=== PATIENT | female | born 1980 | race Caucasian/White ===

== ENCOUNTER 2017-09-17 06:24 | Emergency (ER) | payer MEDICAID ==
[2017-09-17] MEDS ORDERED: LORAZEPAM 2 MG/ML VIAL IV ONE (06:43)
--- NOTE | 2017-09-17 06:51 | Emergency Department Record ---
History of Present Illness - General Chief Complaint: Dizziness Stated Complaint: DIZZINESS Time Seen by Provider: 09/17/17 06:31 Source: Patient Mode of Arrival: Ambulatory Limitations: No limitations - History of Present Illness Initial Comments: The patient is here due to an episode of vague L sided chest discomfort described as tightness that occurred at 4:45 am while on the way to work. She also developed lightheadedness, weakness, SOB, and did vomit once. The symptoms lasted 15-20 minutes then did resolve. The issues did return about 20 minutes ago with the addition of spots in front of her eyes so the patient decided to come over from work at [employer] to be evaluated. She additionally has been very anxious recently. The patient states she was just started on a new BP medicine last week. The patient also states she has missed her menses for the last 4 months but did just start it today. MD Complaint: Dizziness Onset/Timin -: Hour(s) Timing: Sudden onset Description: Difficulty walking, Lightheadedness, Nausea Associated Symptoms: Denies other symptoms - [place] Coma Scale Eye Response: (4) Open spontaneously Motor Response: (6) Obeys commands Verbal Response: (5) Oriented [place] Total: 15 - Related Data Allergies Allergy/AdvReac Type Severity Reaction Status Date / Time ssri antidepressants Allergy Intermediate ALTERED Uncoded 11/29/15 11:51 MENTAL STATUS Travel Screening - Travel/Exposure Within Last 30 Days Have you traveled within the last 30 days?: No - Travel/Exposure Within Last Year Have you traveled outside the [place] in the last year?: No - Additonal Travel Details Have you been exposed to anyone with a communicable illness?: No - Travel Symptoms Symptom Screening: None Review of Systems Constitutional: Denies: Chills, Fever Eyes: Denies: Eye discharge ENT: Denies: Congestion Respiratory: Denies: Cough, Dyspnea Past Medical History - SOCIAL HISTORY Smoking Status: Current every day smoker Alcohol Use: Occasional Drug Use: None - RESPIRATORY Hx Respiratory Disorders: No - CARDIOVASCULAR Hx Cardio Disorders: No - NEURO Hx Neuro Disorders: No - GI Hx GI Disorders: No - Hx Genitourinary Disorders: Yes Hx Kidney Stones: Yes (hx) - ENDOCRINE Hx Endocrine Disorders: No - MUSCULOSKELETAL Hx Musculoskeletal Disorders: No - PSYCH Hx Psych Problems: Yes Hx Depression: Yes - HEMATOLOGY/ONCOLOGY Hx Hematology/Oncology Disorders: No Family Medical History Any Significant Family History?: Yes Hx Cancer: Father Physical Exam - General General Appearance: Alert, Oriented x3, Cooperative, No acute distress - Head Head exam: Atraumatic, Normocephalic, Normal inspection - Eye Eye exam: Normal appearance, PERRL, EOMI - ENT Throat exam: Normal inspection. negative: Tonsillar erythema, Tonsillar exudate - Neck Neck exam: Normal inspection, Full ROM. negative: Tenderness - Respiratory Respiratory exam: Normal lung sounds bilaterally. negative: Respiratory distress - Cardiovascular Cardiovascular Exam: Regular rate, Normal rhythm, Normal heart sounds - GI/Abdominal GI/Abdominal exam: Soft, Normal bowel sounds. negative: Tenderness - Extremities Extremities exam: Normal inspection, Full ROM, Normal capillary refill. negative: Tenderness - Neurological Neurological exam: Alert, Normal gait, Oriented X3. negative: Abnormal gait, Motor sensory deficit - Psychiatric Psychiatric exam: negative: Anxious Course Vital Signs 09/17/17 06:29 Temperature 97.8 F Pulse Rate [ 97 H Pulse Ox Probe] Respiratory 24 Rate Blood Pressure 154/107 [Left Arm] Pulse Ox 98 - Reevaluation(s) Reevaluation #1: The patient's care will be turned over to Dr. Wen at 7am due to shift change. 09/17/17 06:49 Medical Decision Making - Lab Data Result diagrams: 09/17/17 06:42 09/17/17 06:42 Disposition Quality - Quality Measures Quality Measures: N/A - Blood Pressure Screening View Details: Yes Does Patient Have Any of the Following: Active Dx of HTN Blood Pressure Classification: Hypertensive Reading Systolic Measurement: 154 Diastolic Measurement: 107 Screening for High Blood Pressure: Patient Exclusion, Hx of HTN [G9744]
[2017-09-17 06:58] LABS: BASO % 0.4 % (0-6); EOS % 0.6 % (0-6); HEMOGLOBIN 13.1 gm/dl (11.6-16.0); LYMPH % 16.2 % (16-45); MEAN CELL VOLUME 98.8 fl (81-97); MEAN CORPUSCULAR HEMOGLOBIN 31.6 pg (27-33); MEAN PLATELET VOLUME 8.9 fl (7.4-10.4); MONO % 6.8 % (0-9); PLATELET COUNT 298 K/uL (130-400); RED BLOOD COUNT 4.15 M/uL (3.80-5.40); RED CELL DISTRIBUTION WIDTH 16.4 % (11.5-14.5); WHITE BLOOD COUNT W/O DIFF 10.4 K/uL (4.2-12.2)
--- NOTE | 2017-09-17 07:02 | Emergency Department Record ---
History of Present Illness - General Chief Complaint: Dizziness Stated Complaint: DIZZINESS Time Seen by Provider: 09/17/17 06:31 Source: Patient Mode of Arrival: Ambulatory Limitations: No limitations - History of Present Illness Onset/Timin -: Hour(s) Timing: Sudden onset Description: Difficulty walking, Lightheadedness, Nausea Associated Symptoms: Denies other symptoms - [place] Coma Scale Eye Response: (4) Open spontaneously Motor Response: (6) Obeys commands Verbal Response: (5) Oriented [place] Total: 15 - Related Data Allergies Allergy/AdvReac Type Severity Reaction Status Date / Time ssri antidepressants Allergy Intermediate ALTERED Uncoded 11/29/15 11:51 MENTAL STATUS Travel Screening - Travel/Exposure Within Last 30 Days Have you traveled within the last 30 days?: No - Travel/Exposure Within Last Year Have you traveled outside the [place] in the last year?: No - Additonal Travel Details Have you been exposed to anyone with a communicable illness?: No - Travel Symptoms Symptom Screening: None Review of Systems Constitutional: Denies: Chills, Fever Eyes: Denies: Eye discharge ENT: Denies: Congestion Respiratory: Denies: Cough, Dyspnea Past Medical History - SOCIAL HISTORY Smoking Status: Current every day smoker Alcohol Use: Occasional Drug Use: None - RESPIRATORY Hx Respiratory Disorders: No - CARDIOVASCULAR Hx Cardio Disorders: No - NEURO Hx Neuro Disorders: No - GI Hx GI Disorders: No - Hx Genitourinary Disorders: Yes Hx Kidney Stones: Yes (hx) - ENDOCRINE Hx Endocrine Disorders: No - MUSCULOSKELETAL Hx Musculoskeletal Disorders: No - PSYCH Hx Psych Problems: Yes Hx Depression: Yes - HEMATOLOGY/ONCOLOGY Hx Hematology/Oncology Disorders: No Family Medical History Any Significant Family History?: Yes Hx Cancer: Father Physical Exam - General Limitations: No limitations Course Vital Signs 09/17/17 06:29 Temperature 97.8 F Pulse Rate [ 97 H Pulse Ox Probe] Respiratory 24 Rate Blood Pressure 154/107 [Left Arm] Pulse Ox 98 Medical Decision Making - Data Complexity MDM Data: EKG Ordered and/or Reviewed - Lab Data Result diagrams: 09/17/17 06:25 09/17/17 06:25 Lab Results 09/17/17 Range/Units 06:25 WBC 10.4 (4.2-12.2) K/uL RBC 4.15 (3.80-5.40) M/uL Hgb 13.1 (11.6-16.0) gm/dl Hct 41.0 (35.0-47.0) % MCV 98.8 H (81-97) fl MCH 31.6 (27-33) pg MCHC 32.0 (32-36) g/dl RDW 16.4 H (11.5-14.5) % Plt Count 298 (130-400) K/uL MPV 8.9 (7.4-10.4) fl Gran % 76.0 (47-80) % Lymphocytes % 16.2 (16-45) % Monocytes % 6.8 (0-9) % Eosinophils % 0.6 (0-6) % Basophils % 0.4 (0-6) % - EKG Data -: EKG Interpreted by Me EKG: No Acute Changes, Normal EKG Disposition Forms: Patient Portal Access Quality - Quality Measures Quality Measures: N/A - Blood Pressure Screening View Details: Yes Does Patient Have Any of the Following: Active Dx of HTN Blood Pressure Classification: Hypertensive Reading Systolic Measurement: 154 Diastolic Measurement: 107 Screening for High Blood Pressure: Patient Exclusion, Hx of HTN [G9744]
[2017-09-17 07:11] LABS: BLOOD UREA NITROGEN 11 mg/dL (6-20); CREATININE 0.7 mg/dL (0.5-0.9); EST GLOMERULAR FILTRATION RATE > 60 mL/min
[2017-09-17 07:14] LABS: GLUCOSE,RANDOM 109 mg/dL (74-109); INR 0.9; PARTIAL THROMBOPLASTIN TIME 26.6 SECONDS (24.5-39.1)
[2017-09-17 07:17] LABS: CREATINE PHOSPHOKINASE 116 U/L (26-192)
[2017-09-17 07:19] LABS: CKMB 1.8 ng/mL (<3.77)
--- NOTE | 2017-09-17 07:40 | Emergency Department Record ---
History of Present Illness - General Chief Complaint: Dizziness Stated Complaint: DIZZINESS Time Seen by Provider: 09/17/17 06:31 Source: Patient Mode of Arrival: Ambulatory Limitations: No limitations - History of Present Illness Initial Comments: 37 yo female presents with nausea and lightheadedness. She was signed out by Dr Koo at 7am. The patient was seen and examined. She reports that she woke up around 4am feeling tired but fairly normal. She was at work at [employer] and became nauseated and lightheaded. The symptoms did not quickly resolve so she asked her boss if she could leave. 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 She was recently diagnosed with HTN and started Lisinopril in the last week. She is now asymptomatic. During the episode she could feel her heart race, felt numb and tingling, hard to concentrate, and a brief, vague tight feeling in the chest. No history of CAD, no strong family history of early or premature CAD. No history of SCD in the family. Onset/Timin -: Hour(s) Timing: Sudden onset Description: Difficulty walking, Lightheadedness, Nausea Associated Symptoms: Denies other symptoms - [place] Coma Scale Eye Response: (4) Open spontaneously Motor Response: (6) Obeys commands Verbal Response: (5) Oriented [place] Total: 15 - Related Data Allergies Allergy/AdvReac Type Severity Reaction Status Date / Time ssri antidepressants Allergy Intermediate ALTERED Uncoded 11/29/15 11:51 MENTAL STATUS Travel Screening - Travel/Exposure Within Last 30 Days Have you traveled within the last 30 days?: No - Travel/Exposure Within Last Year Have you traveled outside the [place] in the last year?: No - Additonal Travel Details Have you been exposed to anyone with a communicable illness?: No - Travel Symptoms Symptom Screening: None Review of Systems Constitutional: Denies: Chills, Fever Eyes: Denies: Eye discharge ENT: Denies: Congestion Respiratory: Denies: Cough, Dyspnea Past Medical History - SOCIAL HISTORY Smoking Status: Current every day smoker Alcohol Use: Occasional Drug Use: None - RESPIRATORY Hx Respiratory Disorders: No - CARDIOVASCULAR Hx Cardio Disorders: No - NEURO Hx Neuro Disorders: No - GI Hx GI Disorders: No - Hx Genitourinary Disorders: Yes Hx Kidney Stones: Yes (hx) - ENDOCRINE Hx Endocrine Disorders: No - MUSCULOSKELETAL Hx Musculoskeletal Disorders: No - PSYCH Hx Psych Problems: Yes Hx Depression: Yes - HEMATOLOGY/ONCOLOGY Hx Hematology/Oncology Disorders: No Family Medical History Any Significant Family History?: Yes Hx Cancer: Father Physical Exam - General General Appearance: Alert, Oriented x3, Cooperative, No acute distress Limitations: No limitations - Head Head exam: Atraumatic, Normal inspection - Eye Eye exam: Normal appearance. negative: Conjunctival injection, Scleral icterus - ENT ENT exam: Normal exam Ear exam: Normal external inspection Nasal Exam: Normal inspection Mouth exam: Normal external inspection - Neck Neck exam: Normal inspection - Respiratory Respiratory exam: Normal lung sounds bilaterally. negative: Respiratory distress - Cardiovascular Cardiovascular Exam: Regular rate, Normal rhythm, Normal heart sounds - GI/Abdominal GI/Abdominal exam: Soft. negative: Tenderness - Rectal Rectal exam: Deferred - exam: Deferred - Extremities Extremities exam: Normal inspection, Full ROM, Normal capillary refill. negative: Calf tenderness, Pedal edema, Tenderness - Back Back exam: Reports: Full ROM - Neurological Neurological exam: Alert, Normal gait, Oriented X3 - Psychiatric Psychiatric exam: Normal affect, Normal mood - Skin Skin exam: Dry, Intact, Normal color, Warm Course Vital Signs 09/17/17 09/17/17 06:29 07:33 Temperature 97.8 F Pulse Rate [ 97 H 93 H Pulse Ox Probe] Respiratory 24 20 Rate Blood Pressure 154/107 137/95 [Left Arm] Pulse Ox 98 97 - Reevaluation(s) Reevaluation #1: The EKG was reviewed. Normal EKG, sinus, rate of 92, intervals normal, axis normal, ST normal, Troponin is normal. The patient has atypical symptoms Her HEART SCORE is 2 making her very low risk for MACE. The plan is for DC if the 2nd set of Troponin is negative 09/17/17 07:42 09/17/17 10:26 The repeat Troponin was normal DC home to follow up with her PCP Medical Decision Making - Lab Data Result diagrams: 09/17/17 06:25 09/17/17 06:25 Lab Results 09/17/17 09/17/17 09/17/17 Range/Units 06:25 06:25 06:25 WBC 10.4 (4.2-12.2) K/uL RBC 4.15 (3.80-5.40) M/uL Hgb 13.1 (11.6-16.0) gm/dl Hct 41.0 (35.0-47.0) % MCV 98.8 H (81-97) fl MCH 31.6 (27-33) pg MCHC 32.0 (32-36) g/dl RDW 16.4 H (11.5-14.5) % Plt Count 298 (130-400) K/uL MPV 8.9 (7.4-10.4) fl Gran % 76.0 (47-80) % Lymphocytes % 16.2 (16-45) % Monocytes % 6.8 (0-9) % Eosinophils % 0.6 (0-6) % Basophils % 0.4 (0-6) % PT 10.0 (9.5-12.1) SECONDS INR 0.9 APTT 26.6 (24.5-39.1) SECONDS Sodium 142 (136-145) mmol/L Potassium 4.1 (3.4-4.5) mmol/L Chloride 100 (98-107) mmol/L Carbon Dioxide 25.0 (22-29) mmol/L Anion Gap 17.0 H (7-16) BUN 11 (6-20) mg/dL Creatinine 0.7 (0.5-0.9) mg/dL Estimated GFR > 60 mL/min Random Glucose 109 (74-109) mg/dL Calcium 8.4 L (8.6-10.0) mg/dL Creatine Kinase 116 (26-192) U/L CK-MB (CK-2) 1.8 (<3.77) ng/mL Troponin T < 0.010 (0-0.010) ng/mL Serum HCG, Qual (NEGATIVE) 09/17/17 Range/Units 06:52 WBC (4.2-12.2) K/uL RBC (3.80-5.40) M/uL Hgb (11.6-16.0) gm/dl Hct (35.0-47.0) % MCV (81-97) fl MCH (27-33) pg MCHC (32-36) g/dl RDW (11.5-14.5) % Plt Count (130-400) K/uL MPV (7.4-10.4) fl Gran % (47-80) % Lymphocytes % (16-45) % Monocytes % (0-9) % Eosinophils % (0-6) % Basophils % (0-6) % PT (9.5-12.1) SECONDS INR APTT (24.5-39.1) SECONDS Sodium (136-145) mmol/L Potassium (3.4-4.5) mmol/L Chloride (98-107) mmol/L Carbon Dioxide (22-29) mmol/L Anion Gap (7-16) BUN (6-20) mg/dL Creatinine (0.5-0.9) mg/dL Estimated GFR mL/min Random Glucose (74-109) mg/dL Calcium (8.6-10.0) mg/dL Creatine Kinase (26-192) U/L CK-MB (CK-2) (<3.77) ng/mL Troponin T (0-0.010) ng/mL Serum HCG, Qual Negative (NEGATIVE) Disposition Disposition: Discharge Clinical Impression: Weakness, Atypical chest pain Disposition: Home, Self-Care Condition: (1) Good Instructions: Dizziness (ED), Chest Pain (ED) Additional Instructions: Rest today and stay well hydrated Return to the ED if you have any return of symptoms Call your doctor today You are being referred to cardiology at the [facility] for outpatient follow up Referrals: RACHEL ROJO M.D. [MEDICAL DOCTOR] - [facility] [Provider Group] Forms: Patient Portal Access Time of Disposition: 10:30 Quality - Quality Measures Quality Measures: N/A - Blood Pressure Screening Does Patient Have Any of the Following: Active Dx of HTN Blood Pressure Classification: Hypertensive Reading Systolic Measurement: 137 Diastolic Measurement: 95 Screening for High Blood Pressure: Patient Exclusion, Hx of HTN [G9744]
== END 2017-09-17 10:45 | disposition home or self-care (01) ==
LOC: ER 06:24
DX: R07.89 Other chest pain (principal); R53.1 Weakness; R11.0 Nausea; R26.2 Difficulty in walking, not elsewhere classified; I10 Essential (primary) hypertension; F17.210 Nicotine dependence, cigarettes, uncomplicated
CPT/HCPCS: 99284 ×2; 96374; 82550; 85025; 85730; 85610; 82553; 80048; 84703; 84484; 93005; 93010; J2060